=== PATIENT | female | born 1970 | race Caucasian/White ===

== ENCOUNTER → 2020-09-24 | Outpatient (CLI) | payer SELFPAY ==
--- NOTE | 2020-09-24 | EMB_PTH ---
PATIENT: VENTURA GIORDANO LOC: [facility] U#:[id number] AGE/SX: 50/F ROOM: RE09/24/[address]: Dr. Uriah Giordano MD : [id number] BED: DIS: 09/24/2020 SPEC #: [id number] RECD: 09/25/20 13:18 STATUS: RUBIO SYLVIA #: [id number] TAO: 09/24/20 00:[address]: Uriah Giordano DEPT: SURGICAL PATHOLOGY RECD BY: Janine Farley Tissues: Endometrium, NOS Procedures: Surgery Specimen Level IV HEADER OPERATION: Endometrial biopsy PRE-OP DIAGNOSIS: N85.01 TISSUE SUBMITTED: Endometrial biopsy MICROSCOPIC DIAGNOSIS Endometrium, biopsy: Scant strips of weakly proliferative endometrium. AM:john 09/26/2020 MICROSCOPIC DESCRIPTION Slides are reviewed. GROSS DESCRIPTION Received in fixative is one container labeled with the patient's name and designated EM biopsy. The specimen consists of multiple fragments of hemorrhagic soft tissue that in aggregate measure 2.5 x 1.8 x 0.1 cm. The specimen is totally submitted in one cassette. / SJ:rg 09/25/20 TC:5 CPT: 77659
== END | disposition home or self-care (01) ==
LOC: LABSPEC 09-25 08:55
PROVIDERS: Visit Provider Obstetrics & Gynecology
DX: N85.01 Benign endometrial hyperplasia (principal)
CPT/HCPCS: 88305